=== PATIENT | male | born 1990 | race African-American/Black ===

== ENCOUNTER 2024-07-31 10:58 | Emergency (ER) | payer OTHER ==
[~2024-07-31] VITALS: Ht 188 cm; Wt 100.4 kg
[2024-07-31 11:16] VITALS: BP 126/74; PULSE 110; RESP 22; TEMP 102.3; O2SAT 93
[2024-07-31] MEDS: NACL 0.9% 1,000 ML IV ONE (12:54)
[2024-07-31] MEDS: ONDANSETRON 4 MG/2 ML VIAL IVP ONE (12:57)
[2024-07-31] MEDS: ACETAMINOPHEN EXTRA STRENGTH 500 MG TAB PO ONE (12:58)
[2024-07-31 14:01] VITALS: O2SAT 93
[2024-07-31] MEDS ORDERED: cefTRIAXone 1,000 MG VIAL ONE (14:15)
[2024-07-31 14:20] LABS: FLU A ANTIGEN negative (NEGATIVE); FLU B ANTIGEN negative (NEGATIVE)
[2024-07-31] MEDS ORDERED: AMOX1TAB8 PO (15:07)
[2024-07-31] MEDS ORDERED: BENZ150C7 PO (15:07)
[2024-07-31] MEDS ORDERED: AZIT250T4 PO (15:07)
[2024-07-31] MEDS ORDERED: IBUP-2218 PO (15:07)
[2024-07-31] MEDS ORDERED: ONDA-188 PO (15:07)
[2024-07-31] MEDS ORDERED: PROM118S5 PO (15:07)
[2024-07-31 15:45] VITALS: BP 124/69; PULSE 75; RESP 17; TEMP 98; O2SAT 93
== END 2024-07-31 15:55 | disposition home or self-care (01) ==
LOC: MED 10:58
DX: J18.9 Pneumonia, unspecified organism (principal); E86.0 Dehydration; R03.0 Elevated blood-pressure reading, without diagnosis of hypertension; Z20.822 Contact with and (suspected) exposure to COVID-19; Z79.899 Other long term (current) drug therapy
CPT/HCPCS: 71045; 82948; 87426; 87804; 96365; 96375; 99284; J0696; J2405; J7030